=== PATIENT | female | born 1930 | race African-American/Black ===

== ENCOUNTER 2021-02-21 08:51 | Day surgery (SDC) | payer BC, SELFPAY ==
[~2021-02-21] VITALS: Ht 182.9 cm; Wt 98.0 kg
[~2021-02-21 08:51] MED LIST: CEFAZOLIN SOD 2 GM in D5W 50 ML IV ONE
[2021-02-21] MEDS ORDERED: ROCURONIUM BROMIDE 10 MG/ML (ZEMURON) IV ONE (12:54)
[2021-02-21] MEDS ORDERED: SEVOFLURANE 15 MIN GAS INH ONE (12:54)
[2021-02-21] MEDS ORDERED: fentaNYL CITRATE 250 MCG/5 ML AMP IV ONE (12:54)
[2021-02-21] MEDS ORDERED: BUPIVACAINE LIPOSOME/PF 266 MG/20 ML VIAL INFIL ONE ×2 (12:54→13:34)
[2021-02-21] MEDS ORDERED: PROPOFOL 200MG/ 20ML VIAL (DIPRIVAN) IV ONE (12:54)
[2021-02-21] MEDS ORDERED: ETOMIDATE 20 MG/ 10 ML VIAL (AMIDATE) IVP ONE (12:54)
[2021-02-21] MEDS ORDERED: CEFAZOLIN 1 GM IVPB PREMIX 50 ML IV ONE (12:54)
[2021-02-21] MEDS ORDERED: LIDOCAINE 1% 10 MG/ML, 20 ML MDV INJ ONE (12:54)
[2021-02-21] MEDS ORDERED: ONDANSETRON HCL 4 MG/2 ML VIAL IVP ONE ×2 (12:54→16:30)
[2021-02-21] MEDS ORDERED: METOPROLOL TARTRATE 5 MG/5 ML VIAL IVP ONE (12:54)
[2021-02-21] MEDS ORDERED: NS IRRIG SOLN 1000 ML IR ONE (12:54)
[2021-02-21] MEDS ORDERED: LR 1,000 ML IV.SOLN IV ONE (12:54)
[2021-02-21] MEDS ORDERED: BUPIVACAINE /EPINEPHRINE/PF 0.5% 30 ML VIAL INJ ONE (12:54)
[2021-02-21] MEDS ORDERED: POLYMYXIN 500,000/BACIT.10,000 UNITS in NS IRR 1 L IR ONE (13:27)
[2021-02-21] MEDS ORDERED: MORPHINE SULFATE 10 MG/ML VIAL IVP PRN (13:30)
[2021-02-21] MEDS ORDERED: LR 1,000 ML IV SCH ×2 (13:30→14:45)
[2021-02-21] MEDS ORDERED: ONDANSETRON HCL 4 MG/2 ML VIAL IVP PRN (13:30)
[2021-02-21] MEDS ORDERED: MORPHINE 4 MG INJ. 4 MG/ML VIAL IVP PRN ×2 (13:30)
[2021-02-21 14:26] VITALS: BP_SYST 159
[2021-02-21] MEDS ORDERED: NALOXONE HCL 0.4 MG/ML AMP (NARCAN) IVP PRN (14:45)
[2021-02-21] MEDS ORDERED: DILTIAZEM HCL 25 MG/5 ML VIAL IVP PRN (14:45)
[2021-02-21] MEDS ORDERED: ePHEDrine sulfate 50 MG/ML VIAL IVP PRN (14:45)
[2021-02-21] MEDS ORDERED: MIDAZOLAM HCL 5 MG/5 ML VIAL IVP PRN (14:45)
[2021-02-21] MEDS ORDERED: LABETALOL 100 MG/ 20ML VIAL IVP PRN (14:45)
[2021-02-21] MEDS ORDERED: ONDANSETRON HCL 4 MG/2 ML VIAL IM PRN (16:45)
== END 2021-02-21 17:15 | disposition home or self-care (01) ==
LOC: SDS 08:51 → SMU 08:52 → SDS 17:15
PROVIDERS: ATTEND Surgery
DX: K40.90 Unilateral inguinal hernia, without obstruction or gangrene, not specified as recurrent (principal); I48.91 Unspecified atrial fibrillation; I12.9 Hypertensive chronic kidney disease with stage 1 through stage 4 chronic kidney disease, or unspecified chronic kidney disease; N18.30 Chronic kidney disease, stage 3 unspecified; F41.9 Anxiety disorder, unspecified; E78.5 Hyperlipidemia, unspecified; D63.1 Anemia in chronic kidney disease; G62.9 Polyneuropathy, unspecified; E11.22 Type 2 diabetes mellitus with diabetic chronic kidney disease; E11.40 Type 2 diabetes mellitus with diabetic neuropathy, unspecified; Z79.899 Other long term (current) drug therapy
CPT/HCPCS: 36415; 49505; 87426; 88302; C1781; C9290; J0690 ×2; J2001; J2405; J2704; J3010; J3490 ×3; J7060; J7120